=== PATIENT | male | born 1980 | race Caucasian/White ===

== ENCOUNTER 2018-11-18 17:33 | Emergency (ER) | payer SELFPAY ==
[~2018-11-18] VITALS: Ht 180.3 cm; Wt 127.0 kg
[2018-11-18] MEDS ORDERED: NAPROSYN500 MG PO (19:24)
== END 2018-11-18 19:27 | disposition home or self-care (01) ==
LOC: ED 17:33
DX: M25.522 Pain in left elbow (principal); X58.XXXA Exposure to other specified factors, initial encounter; Y93.89 Activity, other specified; Y92.89 Other specified places as the place of occurrence of the external cause; Y99.8 Other external cause status

== ENCOUNTER 2024-12-26 19:43 | Emergency (ER) | payer OTHER ==
[~2024-12-26 19:43] MED LIST: NAPROSYN500 MG PO
[2024-12-26] MEDS ORDERED: SODIUM CHLORIDE 0.9% 3 ML AMP NEB ONE (20:05)
[2024-12-26 20:21] LABS: BASO # 0.0 10*3/uL (0.0-0.1); BASO % 0.4 % (0.0-1.0); EOS # 0.1 10*3/uL (0.0-0.4); EOS % 1.2 % (1.0-4.0); MEAN CELL VOLUME 92.5 fl (80.0-94.0); MEAN CORPUSCULAR HGB 31.1 pg (27.0-31.0); MEAN PLATELET VOLUME 8.9 fl (9.6-12.3); MONO # 0.6 10*3/uL (0.1-1.0); MONO % 5.8 % (3.0-9.0); NEUT # 6.9 10*3/uL (2.3-7.9); NEUT % 70.5 % (47.0-73.0); NUCLEATED RED BLOOD CELL 0.0 % (0.0-0.0); NUCLEATED RED BLOOD CELL 0.0 10*3/uL (0.0-0.0); PLATELET COUNT AUTOMATED 177 10*3/uL (130-400); RED CELL DISTRI WIDTH 13.6 % (0-14.5)
[2024-12-26 20:39] LABS: BUN 15 mg/dl (9-23); SGPT/ALT 37 U/L (5-49)
== END 2024-12-26 23:31 | disposition home or self-care (01) ==
LOC: ED 19:43
PROVIDERS: Internal Medicine
DX: J70.5 Respiratory conditions due to smoke inhalation (principal); Z79.899 Other long term (current) drug therapy